=== PATIENT | male | born 1965 | race Caucasian/White ===

== ENCOUNTER 2016-11-13 08:03 | Emergency (ER) | payer SELFPAY ==
[~2016-11-13] VITALS: Ht 177.8 cm; Wt 68.0 kg
[~2016-11-13 08:03] MED LIST: CATAFLAM50 MG PO; DAYPRO600 M1 PO; FLEXERIL10 MG PO; HYDROCODONE BIT1 T11 PO; MOTRIN800 MG PO; NAPROSYN500 MG PO; NKHM; NORFLEX100 MG PO; PREDNICOT20 MG PO; ROBAXIN750 MG PO; VICODIN 5/500 505 MG PO; VICODIN ES 7501 TAB PO; [UNRECOGNIZED DRUG - OTHER]
[2016-11-13 08:52] LABS: BASO % 0.8 % (0.0-1.0); EOS # 0.1 10*3/uL (0.0-0.4); EOS % 1.2 % (1.0-4.0); HEMATOCRIT 43.9 % (42.0-52.0); HEMOGLOBIN 14.6 g/dl (14.0-18.0); LYMPH # 0.9 10*3/uL (1.3-4.4); LYMPH % 18.6 % (27.0-41.0); MEAN CELL VOLUME 92.4 fl (80.0-94.0); MEAN CORPUSCULAR HGB 30.7 pg (27.0-31.0); MEAN CORPUSCULAR HGB CONC 33.3 g/dl (33.0-37.0); MEAN PLATELET VOLUME 9.9 fl (9.6-12.3); MONO # 0.8 10*3/uL (0.1-1.0); MONO % 16.6 % (3.0-9.0); NEUT # 3.1 10*3/uL (2.3-7.9); NEUT % 62.6 % (47.0-73.0); PLATELET COUNT AUTOMATED 203 10*3/uL (130-400); RED BLOOD COUNT 4.75 10*6/uL (4.50-5.90); RED CELL DISTRI WIDTH 12.8 % (0-14.5)
[2016-11-13 09:09] LABS: ALBUMIN 3.9 gm/dl (3.1-4.5); ALKALINE PHOSPHATASE 71 U/L (45-117); BILIRUBIN, TOTAL 0.3 mg/dl (0.2-1.0); BUN 15 mg/dl (7-24); CARBON DIOXIDE 27 mmol/L (21-32); CHLORIDE 104 mmol/L (98-107); EST GLOM FILT AFRICAN AMERICAN > 60 ml/min; GLUCOSE 102 mg/dL (65-99); SGOT/AST 14 IU/L (3-35); SGPT/ALT 19 U/L (12-78); SODIUM 139 mmol/L (136-145); TOTAL PROTEIN 7.4 gm/dL (6.4-8.2)
[2016-11-13] MEDS ORDERED: ZOFRAN4 MG PO (10:29)
== END 2016-11-13 11:38 | disposition home or self-care (01) ==
LOC: ED 08:03
PROVIDERS: Emergency Medicine
DX: R11.2 Nausea with vomiting, unspecified (principal); R19.7 Diarrhea, unspecified; F17.200 Nicotine dependence, unspecified, uncomplicated

== ENCOUNTER 2020-03-21 08:22 | Emergency (ER) | payer OTHER ==
[~2020-03-21] VITALS: Ht 177.8 cm; Wt 72.6 kg
[~2020-03-21 08:22] MED LIST changes: +FLOMAX0.4 MG PO; +Motrin,Rufen800 MG PO; +PERCOCET 5-3251 EACH PO; +ZOFRAN4 MG PO
[2020-03-21 10:26] LABS: BASO # 0.1 10*3/uL (0.0-0.1); EOS # 0.2 10*3/uL (0.0-0.4); EOS % 1.9 % (1.0-4.0); HEMATOCRIT 42.3 % (42.0-52.0); LYMPH # 1.5 10*3/uL (1.3-4.4); LYMPH % 18.3 % (27.0-41.0); MEAN CELL VOLUME 92.6 fl (80.0-94.0); MEAN CORPUSCULAR HGB 30.9 pg (27.0-31.0); MEAN CORPUSCULAR HGB CONC 33.3 g/dl (33.0-37.0); MEAN PLATELET VOLUME 9.4 fl (9.6-12.3); MONO # 0.9 10*3/uL (0.1-1.0); MONO % 10.3 % (3.0-9.0); NEUT # 5.7 10*3/uL (2.3-7.9); NEUT % 68.3 % (47.0-73.0); PLATELET COUNT AUTOMATED 445 10*3/uL (130-400); RED BLOOD COUNT 4.57 10*6/uL (4.50-5.90); RED CELL DISTRI WIDTH 12.5 % (0-14.5); WHITE BLOOD COUNT 8.4 10*3/uL (4.8-10.8)
[2020-03-21] MEDS ORDERED: PROVENTIL HFA6.7 GM INH (10:37)
[2020-03-21] MEDS ORDERED: VIBRAMYCIN100 MG PO (10:37)
[2020-03-21] MEDS ORDERED: PREDNISONE20 M1 PO (10:37)
[2020-03-21 10:38] LABS: ACT PARTIAL THROMBO TIME 29.6 SECONDS (20.0-32.1)
[2020-03-21 10:39] LABS: ALBUMIN 3.5 gm/dl (3.1-4.5); ALKALINE PHOSPHATASE 83 U/L (45-117); BUN 10 mg/dl (7-24); CHLORIDE 101 mmol/L (98-107); CREATININE 0.75 mg/dL (0.70-1.30); LIPASE 79 U/L (73-393); POTASSIUM 3.9 mmol/L (3.5-5.1); SGOT/AST 13 IU/L (3-35); SGPT/ALT 26 U/L (12-78); SODIUM 137 mmol/L (136-145); TOTAL PROTEIN 7.4 gm/dL (6.4-8.2)
[2020-03-21 10:40] LABS: TROPONIN I < 0.015 ng/ml (<0.045)
== END 2020-03-21 10:47 | disposition home or self-care (01) ==
LOC: ED 08:22
PROVIDERS: Family Medicine
DX: J44.1 Chronic obstructive pulmonary disease with (acute) exacerbation (principal); F17.200 Nicotine dependence, unspecified, uncomplicated; Z79.899 Other long term (current) drug therapy

== ENCOUNTER 2024-07-11 18:03 | Emergency (ER) | payer SELFPAY ==
[~2024-07-11] VITALS: Ht 177.8 cm; Wt 72.6 kg
[~2024-07-11 18:03] MED LIST changes: +PREDNISONE20 M1 PO; +PROVENTIL HFA6.7 GM INH; +VIBRAMYCIN100 MG PO
[2024-07-11] MEDS ORDERED: Lidocaine Hydrochloride 2% 10 ML AMP SC ONE (18:10)
[2024-07-11] MEDS ORDERED: Tdap Vaccine 0.5 ML SYR (Adult Vaccine) IM ONE (18:10)
[2024-07-11] MEDS ORDERED: CEPHALEXIN 500 MG CAP PO ONE (18:15)
[2024-07-11] MEDS ORDERED: Bacitracin Zinc 14 GM TUBE T ONE (18:15)
[2024-07-11] MEDS ORDERED: LIDOCAINE HCL/EPINEPHRINE 50 ML VIAL ONE (18:35)
[2024-07-11] MEDS ORDERED: CEPHALEXIN500 M1 PO (19:20)
== END 2024-07-11 19:24 | disposition home or self-care (01) ==
LOC: ED 18:03
DX: S81.012A Laceration without foreign body, left knee, initial encounter (principal); Z87.442 Personal history of urinary calculi; W29.3XXA Contact with powered garden and outdoor hand tools and machinery, initial encounter; Y93.89 Activity, other specified; Y92.89 Other specified places as the place of occurrence of the external cause; Y99.8 Other external cause status

== ENCOUNTER 2024-07-21 15:36 | Emergency (ER) | payer SELFPAY ==
[~2024-07-21 15:36] MED LIST changes: +CEPHALEXIN500 M1 PO
== END 2024-07-21 16:29 | disposition left against medical advice (07) ==
LOC: ED 15:36
DX: T14.8XXD Other injury of unspecified body region, subsequent encounter (principal); Z53.21 Procedure and treatment not carried out due to patient leaving prior to being seen by health care provider; X58.XXXD Exposure to other specified factors, subsequent encounter

== ENCOUNTER 2024-07-22 15:40 | Emergency (ER) | payer SELFPAY ==
[~2024-07-22] VITALS: Ht 172.7 cm; Wt 68.0 kg
== END 2024-07-22 15:45 | disposition home or self-care (01) ==
LOC: ED 15:40
DX: S81.012D Laceration without foreign body, left knee, subsequent encounter (principal); Z87.442 Personal history of urinary calculi; W29.3XXD Contact with powered garden and outdoor hand tools and machinery, subsequent encounter

== ENCOUNTER 2024-07-28 07:47 | Emergency (ER) | payer SELFPAY ==
[~2024-07-28] VITALS: Ht 177.8 cm; Wt 63.6 kg
[2024-07-28] MEDS ORDERED: ACETAMINOPHEN 325 MG TAB PO ONE (08:10)
[2024-07-28] MEDS ORDERED: IBUPROFEN 400 MG TAB PO ONE (08:15)
[2024-07-28] MEDS ORDERED: Lidocaine Hydrochloride 5 ML AMP SC ONE (08:15)
[2024-07-28] MEDS ORDERED: TYLENOL EXTRA500 MG PO (08:56)
[2024-07-28] MEDS ORDERED: ASPERCREME LID1 EACH T (08:56)
[2024-07-28] MEDS ORDERED: Motrin,Rufen400 MG PO (08:56)
[2024-07-28] MEDS ORDERED: Bacitracin Zinc 14 GM TUBE T ONE (09:00)
[2024-07-28] MEDS ORDERED: POLYSPORIN OI28.3 GM T (09:00)
== END 2024-07-28 09:10 | disposition home or self-care (01) ==
LOC: ED 07:47
DX: M54.6 Pain in thoracic spine (principal); S81.012D Laceration without foreign body, left knee, subsequent encounter; J44.9 Chronic obstructive pulmonary disease, unspecified; Z87.442 Personal history of urinary calculi; X58.XXXD Exposure to other specified factors, subsequent encounter

== ENCOUNTER 2025-07-26 17:09 | Emergency (ER) | payer OTHER ==
[~2025-07-26] VITALS: Wt 70.3 kg
[~2025-07-26 17:09] MED LIST changes: +ASPERCREME LID1 EACH T; +Motrin,Rufen400 MG PO; +POLYSPORIN OI28.3 GM T; +TYLENOL EXTRA500 MG PO
[2025-07-26] MEDS ORDERED: ceFAZolin sodium/sodium chlor 10 ML IV ONE (18:10)
[2025-07-26] MEDS ORDERED: SODIUM CHLORIDE 0.9% 1,000 ML IV ONE (18:10)
[2025-07-26 18:32] LABS: BASO # 0.0 10*3/uL (0.0-0.1); BASO % 0.2 % (0.0-1.0); EOS # 0.0 10*3/uL (0.0-0.4); EOS % 0.1 % (1.0-4.0); MEAN CELL VOLUME 93.0 fl (80.0-94.0); MEAN CORPUSCULAR HGB 31.0 pg (27.0-31.0); MEAN PLATELET VOLUME 9.1 fl (9.6-12.3); MONO # 1.1 10*3/uL (0.1-1.0); MONO % 7.2 % (3.0-9.0); NEUT # 13.0 10*3/uL (2.3-7.9); NEUT % 83.6 % (47.0-73.0); NUCLEATED RED BLOOD CELL 0.0 % (0.0-0.0); NUCLEATED RED BLOOD CELL 0.0 10*3/uL (0.0-0.0); PLATELET COUNT AUTOMATED 327 10*3/uL (130-400); RED CELL DISTRI WIDTH 13.2 % (0-14.5)
[2025-07-26 18:53] LABS: BUN 17 mg/dl (9-23)
== END 2025-07-26 21:55 | disposition short-term general hospital (02) ==
LOC: ED 17:09
PROVIDERS: Nurse Practitioner Family
DX: S52.502A Unspecified fracture of the lower end of left radius, initial encounter for closed fracture (principal); S43.102A Unspecified dislocation of left acromioclavicular joint, initial encounter; Z79.899 Other long term (current) drug therapy; V86.59XA Driver of other special all-terrain or other off-road motor vehicle injured in nontraffic accident, initial encounter; Y93.55 Activity, bike riding; Y92.488 Other paved roadways as the place of occurrence of the external cause; Y99.8 Other external cause status

== ENCOUNTER → 2025-08-03 | Outpatient (CLI) | payer OTHER ==
[~2025-08-03] MED LIST changes: +OXYCODONE HCL5 MG PO; +OXYCODONE-ACET1 EAC3 PO
== END | disposition home or self-care (01) ==
LOC: ORTHO 10:22
PROVIDERS: ATTEND Orthopaedic Surgery
DX: S92.341A Displaced fracture of fourth metatarsal bone, right foot, initial encounter for closed fracture (principal); S12.8XXA Fracture of other parts of neck, initial encounter; R60.0 Localized edema; M79.671 Pain in right foot; M25.532 Pain in left wrist; X58.XXXA Exposure to other specified factors, initial encounter; Y93.89 Activity, other specified; Y92.89 Other specified places as the place of occurrence of the external cause; Y99.8 Other external cause status

== ENCOUNTER → 2025-08-04 | Day surgery (SDC) | payer OTHER ==
[2025-08-03 13:52] LABS: BUN 12 mg/dl (9-23)
[~2025-08-04] VITALS: Ht 177.8 cm; Wt 70.3 kg
[~2025-08-04] MED LIST changes: +ACETAMINOPHEN 100 ML IV ONE; +Dexamethasone Sodium Phospha 4 MG/ML VIAL IV ONE; +Lactated Ringer's Solution 1,000 ML IV ONE; +Lidocaine Hydrochloride 30 ML VIAL ONE; +Midazolam Hydrochloride 2 MG/2 ML VIAL IV ONE; +Ondansetron Hydrochloride 4 MG/2 ML VIAL IV ONE; +PROPOFOL 200 MG/20 ML VIAL IV ONE; +Ropivacaine Hydrochloride 5 MG/ML 20 ML AMP IJ ONE; +ceFAZolin sodium/sodium chlor 20 ML IV ONE
[2025-08-04 09:30] VITALS: BP 163/100
[2025-08-04 11:48] VITALS: BP 156/95
[2025-08-04 12:03] VITALS: BP 184/94
[2025-08-04 12:18] VITALS: BP 149/94
[2025-08-04 12:33] VITALS: BP 151/98
[2025-08-04 12:46] VITALS: BP 150/98
== END | disposition home or self-care (01) ==
LOC: SDC 08-03 12:00
PROVIDERS: ATTEND Orthopaedic Surgery
DX: S52.572A Other intraarticular fracture of lower end of left radius, initial encounter for closed fracture (principal); K21.9 Gastro-esophageal reflux disease without esophagitis; F17.200 Nicotine dependence, unspecified, uncomplicated; X58.XXXA Exposure to other specified factors, initial encounter; Y93.89 Activity, other specified; Y92.89 Other specified places as the place of occurrence of the external cause; Y99.8 Other external cause status

== ENCOUNTER → 2025-08-12 | Outpatient (CLI) | payer OTHER ==
[~2025-08-12] MED LIST changes: -ACETAMINOPHEN 100 ML IV ONE; -Dexamethasone Sodium Phospha 4 MG/ML VIAL IV ONE; -Lactated Ringer's Solution 1,000 ML IV ONE; -Lidocaine Hydrochloride 30 ML VIAL ONE; -Midazolam Hydrochloride 2 MG/2 ML VIAL IV ONE; -Ondansetron Hydrochloride 4 MG/2 ML VIAL IV ONE; -PROPOFOL 200 MG/20 ML VIAL IV ONE; -Ropivacaine Hydrochloride 5 MG/ML 20 ML AMP IJ ONE; -ceFAZolin sodium/sodium chlor 20 ML IV ONE
== END | disposition home or self-care (01) ==
LOC: ORTHO 01:02
PROVIDERS: ATTEND Orthopaedic Surgery
DX: S52.572D Other intraarticular fracture of lower end of left radius, subsequent encounter for closed fracture with routine healing (principal); X58.XXXD Exposure to other specified factors, subsequent encounter

== ENCOUNTER → 2025-08-19 | Outpatient (CLI) | payer OTHER | END | disposition home or self-care (01) | LOC: ORTHO 00:15 | PROVIDERS: ATTEND Orthopaedic Surgery | DX: S52.572D Other intraarticular fracture of lower end of left radius, subsequent encounter for closed fracture with routine healing (principal); M19.032 Primary osteoarthritis, left wrist; X58.XXXD Exposure to other specified factors, subsequent encounter ==

== ENCOUNTER → 2025-09-16 | Outpatient (CLI) | payer OTHER | END | disposition home or self-care (01) | LOC: ORTHO 00:35 | PROVIDERS: ATTEND Orthopaedic Surgery | DX: S52.572D Other intraarticular fracture of lower end of left radius, subsequent encounter for closed fracture with routine healing (principal); M19.032 Primary osteoarthritis, left wrist; X58.XXXD Exposure to other specified factors, subsequent encounter ==